=== PATIENT | female | born 1945 | race Caucasian/White ===

== ENCOUNTER 2023-01-16 21:03 | Inpatient (IN) | payer MEDICARE, OTHER, SELFPAY ==
[2023-01-16 21:39] LABS: #Monocytes 0.6 thou/uL (0.11-0.59); #Neutrophils 9.1 thou/uL (1.40-6.50); %Basophils 0.3 % (0.0-1.0); %Lymphocytes 9.6 % (21.0-51.0); %Monocytes 5.1 % (0.0-10.0); %Neutrophils 84.1 % (42.0-75.0); Hematocrit 21.2 % (36.0-47.0); Hemoglobin 6.3 g/dL (12.0-16.0); Mean Corpuscular HGB CONC 29.7 g/dL (32.0-36.0); Mean Corpuscular Hemoglobin 29.2 pg (27.0-31.0); Mean Corpuscular Volume 98.1 fl (78.0-98.0); Mean Platelet Volume 9.3 fL (7.4-10.4); Platelet Count 816 10x3/uL (130-400); RBC Distribution Width 26.3 % (11.5-14.5); Red Blood Cell (RBC) Count 2.16 mill/uL (4.20-5.40); White Blood Cell (WBC) Count 10.9 10x3/uL (4.8-10.8)
[2023-01-16 21:53] LABS: Acetaminophen Less than 10 mcg/mL (10.0-30.0); Alcohol Less than 10.0 mg/dL (Less than 10)
[2023-01-16 21:57] LABS: Troponin I Less than 0.010 ng/mL (< 0.028)
[2023-01-16 22:01] LABS: ALT (SGPT) 12 U/L (8-55); AST (SGOT) 22 U/L (5-34); Albumin 3.8 g/dL (3.4-4.8); Alkaline Phosphatase 74 U/L (40-110); Anion Gap 22 mmol/L (10-20); BUN (Urea Nitrogen) 31 mg/dL (9.8-20.1); Bilirubin, Total Less than 0.2 mg/dL (0.2-1.2); CK (CPK) 187 U/L (29-168); Calc. Creatinine Clearance 0 mL/min (70-130); Calcium 8.3 mg/dL (7.8-10.44); Carbon Dioxide 15 mmol/L (23-31); Chloride 104 mmol/L (98-107); Estimated GFR 51; Globulin 2.9 g/dL (2.4-3.5); Glucose 166 mg/dL (83-110); Potassium 3.4 mmol/L (3.5-5.1); Protein, Total 6.7 g/dL (5.8-8.1); Sodium 138 mmol/L (136-145)
[2023-01-16 22:12] LABS: Anisocytosis MODERATE=16-30 cells HPF (0-5); Burr Cells SLIGHT = 2-5 cells HPF (0-1); CellaVision Operator ID lab.abc; Hypochromia SLIGHT = 6-15 cells HPF (0-5); Large Platelets 7.1 % (0-5); Microcytosis SLIGHT = 6-15 cells HPF (0-5); Platelet Adequacy Comment Platelets Increased; Poikilocytosis SLIGHT = 6-15 cells HPF (0-5); Polychromasia SLIGHT = 2-3 cells HPF (0-2); Smudge Cells 6.1 %; Target Cells SLIGHT = 2-5 cells HPF (0-1)
[2023-01-17 00:28] LABS: Bacteria/HPF 4+ HPF (None Seen); Bilirubin Negative (Negative); Blood, Urine Negative (Negative); CAUTI Indications for Culture Alt mental st,lethar; Clarity Turbid (Clear); Glucose, Urine (Dipstick) Normal (Negative); Ketone, Urine 20 mg/dL (Negative); Leukocyte 500 Leu/uL (Negative); Nitrite 1+ (Negative); Protein, Urine (Dipstick) 20 mg/dL (Neg-Trace); Specific Gravity, Urine 1.021 (1.002-1.036); Squamous Epithelial 0-3 HPF (0-3); Urobilinogen Normal mg/dL (Less than 2); WBC/HPF Greater than 50 HPF (0-3)
[2023-01-17 00:32] LABS: Urine Culture Reflex Yes Yes
[2023-01-17 00:34] LABS: Amphetamine Not Detected (NotDetected); Barbiturates Screen Not Detected (NotDetected); Benzodiazepine Screen Not Detected (NotDetected); Cocaine Metabolite Screen Not Detected (NotDetected); Methadone Not Detected (NotDetected); Methamphetamine Not Detected (NotDetected); Opiate Screen Not Detected (NotDetected); Oxycodone Screen Not Detected (NotDetected); Phencyclidine (PCP) Not Detected (NotDetected); THC/Cannabinoid Screen Not Detected (NotDetected); Tricyclic Screen Not Detected (NotDetected)
[2023-01-17] MEDS ORDERED: Electrolyte Replacement Protocol 1 EACH IVPB PRN (00:51)
[2023-01-17] MEDS ORDERED: Nicotine 14 MG PATCH TD SCH (01:15)
[2023-01-17] MEDS ORDERED: Pantoprazole 40 MG VIAL IVP SCH ×2 (01:15→09:00)
[2023-01-17] MEDS ORDERED: Sodium Bicarbonate 150 MEQ in Dextrose 5% in Water 1,000 ML IV SCH ×2 (01:15→19:30)
[2023-01-17] MEDS ORDERED: Sodium Bicarb 50 MEQ/50 ML VIAL IVP SCH (01:30)
[2023-01-17] MEDS ORDERED: Potassium Chloride 20 MEQ in Lactated Ringer's 1,000 ML IV SCH (01:30)
[2023-01-17] MEDS ORDERED: Potassium Chloride 20 MEQ in Premix Bag 1 BAG IVPB SCH (02:00)
[2023-01-17 02:03] LABS: #Basophils 0.1 thou/uL (0.0-0.2); #Monocytes 0.8 thou/uL (0.11-0.59); #Neutrophils 10.7 thou/uL (1.40-6.50); %Basophils 0.4 % (0.0-1.0); %Eosinophils 0.1 % (0.0-10.0); %Lymphocytes 16.4 % (21.0-51.0); %Monocytes 5.7 % (0.0-10.0); %Neutrophils 76.6 % (42.0-75.0); Actual Bicarbonate (HCO3v) 16.9 mEq/L (22-28); Base Excess -4.7 mEq/L (-2.0 to +3.0); Calcium, Ionized (venous) 0.88 mmol/L (1.16-1.32); Chloride (VBG) 111 mmol/L (98-106); Hematocrit 24.5 % (36.0-47.0); Hematocrit-VBG 25 % (36.0-47.0); Hemoglobin 7.8 g/dL (12.0-16.0); Hemoglobin (Hb) 8.6 g/dL (11.7-16.1); Mean Corpuscular HGB CONC 31.8 g/dL (32.0-36.0); Mean Corpuscular Hemoglobin 29.8 pg (27.0-31.0); Mean Platelet Volume 9.3 fL (7.4-10.4); Platelet Count 703 10x3/uL (130-400); Red Blood Cell (RBC) Count 2.62 mill/uL (4.20-5.40); Sodium 134.7 mmol/L (133-146); pH (venous) 7.526 (7.32-7.43)
[2023-01-17 02:05] LABS: Mean Corpuscular Volume 93.5 fl (78.0-98.0); Potassium (VBG) 2.69 mmol/L (3.70-5.30)
[2023-01-17 02:14] LABS: PTT 40.6 sec (22.9-36.1); Prothrombin Time 23.8 sec (12.0-14.7)
[2023-01-17 02:19] LABS: Lactic Acid 0.8 mmol/L (0.5-2.2)
[2023-01-17] MEDS ORDERED: Pantoprazole 40 MG VIAL ONE (02:56)
[2023-01-17] MEDS ORDERED: Sodium Bicarb 50 MEQ/50 ML VIAL ONE ×2 (02:56→04:02)
[2023-01-17] MEDS ORDERED: Potassium Chloride 20 MEQ/100 ML PREMIX BAG ONE ×3 (02:56→06:08)
[2023-01-17 03:27] LABS: Magnesium 2.1 mg/dL (1.6-2.6)
[2023-01-17 03:34] LABS: Salicylate 66.1 mg/dL (15.0-30.0)
[2023-01-17] MEDS ORDERED: Sodium Bicarbonate 2.5 MEQ/5 ML VIAL ONE (04:02)
[2023-01-17 06:10] LABS: ALT (SGPT) 12 U/L (8-55); AST (SGOT) 22 U/L (5-34); Albumin 3.3 g/dL (3.4-4.8); Alkaline Phosphatase 73 U/L (40-110); Anion Gap 19 mmol/L (10-20); BUN (Urea Nitrogen) 28 mg/dL (9.8-20.1); Bilirubin, Total 0.2 mg/dL (0.2-1.2); Calc. Creatinine Clearance 0 mL/min (70-130); Calcium 7.5 mg/dL (7.8-10.44); Carbon Dioxide 19 mmol/L (23-31); Chloride 105 mmol/L (98-107); Estimated GFR 83; Globulin 2.9 g/dL (2.4-3.5); Glucose 84 mg/dL (83-110); Potassium 2.8 mmol/L (3.5-5.1); Protein, Total 6.2 g/dL (5.8-8.1); Salicylate 54.1 mg/dL (15.0-30.0); Sodium 140 mmol/L (136-145)
[2023-01-17] MEDS: Potassium Chloride 20 MEQ in Premix Bag 1 BAG IVPB SCH ×4 (06:20→18:11)
[2023-01-17 06:41] LABS: Bacteria/HPF 4+ HPF (None Seen); Bilirubin Negative (Negative); Blood, Urine Negative (Negative); CAUTI Indications for Culture Alt mental st,lethar; Glucose, Urine (Dipstick) Normal (Negative); Ketone, Urine 20 mg/dL (Negative); Leukocyte 500 Leu/uL (Negative); Nitrite 1+ (Negative); Protein, Urine (Dipstick) 30 mg/dL (Neg-Trace); Specific Gravity, Urine 1.025 (1.002-1.036); Squamous Epithelial 0-3 HPF (0-3); Urobilinogen Normal mg/dL (Less than 2); WBC/HPF Greater than 50 HPF (0-3)
[2023-01-17 06:55] LABS: Clarity Hazy (Clear)
[2023-01-17 07:09] LABS: Unclassified Crystals None Seen HPF (None Seen)
[2023-01-17 07:34] LABS: Potassium 2.7 mmol/L (3.5-5.1)
[2023-01-17 07:38] LABS: ALT (SGPT) 12 U/L (8-55); AST (SGOT) 25 U/L (5-34); Albumin 3.2 g/dL (3.4-4.8); Alkaline Phosphatase 71 U/L (40-110); Anion Gap 18 mmol/L (10-20); BUN (Urea Nitrogen) 27 mg/dL (9.8-20.1); Bilirubin, Total 0.2 mg/dL (0.2-1.2); Calc. Creatinine Clearance 39 mL/min (70-130); Calcium 7.3 mg/dL (7.8-10.44); Carbon Dioxide 21 mmol/L (23-31); Chloride 105 mmol/L (98-107); Estimated GFR 83; Globulin 2.8 g/dL (2.4-3.5); Glucose 106 mg/dL (83-110); Potassium 2.7 mmol/L (3.5-5.1); Sodium 141 mmol/L (136-145)
[2023-01-17] MEDS ORDERED: Ipratropium/Albuterol 3 ML NEB NEB PRN (11:55)
[2023-01-17 12:10] LABS: Potassium 2.7 mmol/L (3.5-5.1); Salicylate 42.7 mg/dL (15.0-30.0)
[2023-01-17 13:27] LABS: Hematocrit 29.2 % (36.0-47.0); Hemoglobin 9.4 g/dL (12.0-16.0)
[2023-01-17 13:29] LABS: Actual Bicarbonate (HCO3v) 24.7 mEq/L (22-28); Base Excess 2.7 mEq/L (-2.0 to +3.0); Calcium, Ionized (venous) 0.84 mmol/L (1.16-1.32); Chloride (VBG) 104 mmol/L (98-106); Hematocrit-VBG 31 % (36.0-47.0); Hemoglobin (Hb) 10.4 g/dL (11.7-16.1); Sodium 136.8 mmol/L (133-146); pH (venous) 7.545 (7.32-7.43)
[2023-01-17 13:36] LABS: Potassium (VBG) 2.61 mmol/L (3.70-5.30)
[2023-01-17] MEDS ORDERED: Potassium Chloride 20 MEQ TAB PO SCH ×3 (14:30→23:00)
[2023-01-17 14:35] LABS: Anion Gap 16 mmol/L (10-20); BUN (Urea Nitrogen) 24 mg/dL (9.8-20.1); Calc. Creatinine Clearance 44 mL/min (70-130); Calcium 7.3 mg/dL (7.8-10.44); Carbon Dioxide 23 mmol/L (23-31); Chloride 101 mmol/L (98-107); Estimated GFR 91; Glucose 135 mg/dL (83-110); Potassium 2.6 mmol/L (3.5-5.1); Salicylate 37.8 mg/dL (15.0-30.0); Sodium 137 mmol/L (136-145)
[2023-01-17] MEDS: Nicotine 14 MG PATCH TD SCH (20:28)
[2023-01-17] MEDS: Pantoprazole 40 MG VIAL IVP SCH (20:29)
[2023-01-17 21:50] LABS: Potassium 3.6 mmol/L (3.5-5.1)
[2023-01-18 01:50] LABS: Potassium 3.9 mmol/L (3.5-5.1)
[2023-01-18 04:14] LABS: #Basophils 0.1 thou/uL (0.0-0.2); #Eosinphils 0.4 thou/uL (0.0-0.7); #Monocytes 0.9 thou/uL (0.11-0.59); #Neutrophils 7.6 thou/uL (1.40-6.50); %Basophils 0.6 % (0.0-1.0); %Eosinophils 3.2 % (0.0-10.0); %Lymphocytes 24.5 % (21.0-51.0); %Monocytes 7.6 % (0.0-10.0); %Neutrophils 63.4 % (42.0-75.0); Mean Corpuscular Hemoglobin 29.5 pg (27.0-31.0); Mean Corpuscular Volume 95.1 fl (78.0-98.0); Mean Platelet Volume 9.7 fL (7.4-10.4); Platelet Count 530 10x3/uL (130-400); RBC Distribution Width 23.2 % (11.5-14.5); Red Blood Cell (RBC) Count 3.05 mill/uL (4.20-5.40)
[2023-01-18 04:45] LABS: ALT (SGPT) 11 U/L (8-55); AST (SGOT) 22 U/L (5-34); Alkaline Phosphatase 69 U/L (40-110); Anion Gap 11 mmol/L (10-20); BUN (Urea Nitrogen) 17 mg/dL (9.8-20.1); Bilirubin, Total 0.2 mg/dL (0.2-1.2); Calc. Creatinine Clearance 51 mL/min (70-130); Carbon Dioxide 22 mmol/L (23-31); Chloride 106 mmol/L (98-107); Estimated GFR 94; Globulin 2.8 g/dL (2.4-3.5); Glucose 71 mg/dL (83-110); Potassium 4.2 mmol/L (3.5-5.1); Protein, Total 5.8 g/dL (5.8-8.1); Salicylate Less than 8.0 mg/dL (15.0-30.0); Sodium 135 mmol/L (136-145)
[2023-01-18] MEDS: Pantoprazole 40 MG VIAL IVP SCH (09:20)
[2023-01-18] MEDS: Nicotine 14 MG PATCH TD SCH (21:17)
[2023-01-19 06:57] LABS: #Basophils 0.1 thou/uL (0.0-0.2); #Eosinphils 0.2 thou/uL (0.0-0.7); #Monocytes 0.8 thou/uL (0.11-0.59); #Neutrophils 6.6 thou/uL (1.40-6.50); %Basophils 0.5 % (0.0-1.0); %Lymphocytes 26.9 % (21.0-51.0); %Monocytes 7.9 % (0.0-10.0); %Neutrophils 62.1 % (42.0-75.0); Hematocrit 25.3 % (36.0-47.0); Mean Corpuscular HGB CONC 31.6 g/dL (32.0-36.0); Mean Corpuscular Hemoglobin 29.5 pg (27.0-31.0); Mean Corpuscular Volume 93.4 fl (78.0-98.0); Mean Platelet Volume 9.7 fL (7.4-10.4); Platelet Count 435 10x3/uL (130-400); RBC Distribution Width 22.6 % (11.5-14.5); Red Blood Cell (RBC) Count 2.71 mill/uL (4.20-5.40); White Blood Cell (WBC) Count 10.6 10x3/uL (4.8-10.8)
[2023-01-19 07:24] LABS: ALT (SGPT) 11 U/L (8-55); AST (SGOT) 20 U/L (5-34); Albumin 2.9 g/dL (3.4-4.8); Alkaline Phosphatase 70 U/L (40-110); Anion Gap 6 mmol/L (10-20); BUN (Urea Nitrogen) 11 mg/dL (9.8-20.1); Bilirubin, Total 0.3 mg/dL (0.2-1.2); Calc. Creatinine Clearance 63 mL/min (70-130); Calcium 8.7 mg/dL (7.8-10.44); Carbon Dioxide 27 mmol/L (23-31); Chloride 106 mmol/L (98-107); Estimated GFR 97; Glucose 83 mg/dL (83-110); Potassium 4.3 mmol/L (3.5-5.1); Protein, Total 5.9 g/dL (5.8-8.1); Sodium 135 mmol/L (136-145)
[2023-01-19] MEDS: Pantoprazole 40 MG VIAL IVP SCH ×3 (07:48→08:28)
[2023-01-19] MEDS: Nicotine 14 MG PATCH TD SCH (20:16)
[2023-01-20 06:24] LABS: #Basophils 0.1 thou/uL (0.0-0.2); #Eosinphils 0.3 thou/uL (0.0-0.7); #Monocytes 0.8 thou/uL (0.11-0.59); #Neutrophils 4.5 thou/uL (1.40-6.50); %Basophils 0.7 % (0.0-1.0); %Eosinophils 3.6 % (0.0-10.0); %Lymphocytes 33.6 % (21.0-51.0); %Monocytes 8.8 % (0.0-10.0); %Neutrophils 52.8 % (42.0-75.0); Hematocrit 31.1 % (36.0-47.0); Hemoglobin 9.5 g/dL (12.0-16.0); Mean Corpuscular HGB CONC 30.5 g/dL (32.0-36.0); Mean Corpuscular Hemoglobin 29.2 pg (27.0-31.0); Mean Corpuscular Volume 95.7 fl (78.0-98.0); Mean Platelet Volume 9.9 fL (7.4-10.4); Platelet Count 363 10x3/uL (130-400); RBC Distribution Width 23.2 % (11.5-14.5); Red Blood Cell (RBC) Count 3.25 mill/uL (4.20-5.40); White Blood Cell (WBC) Count 8.6 10x3/uL (4.8-10.8)
[2023-01-20 06:50] LABS: ALT (SGPT) 14 U/L (8-55); AST (SGOT) 21 U/L (5-34); Albumin 3.3 g/dL (3.4-4.8); Alkaline Phosphatase 91 U/L (40-110); Anion Gap 13 mmol/L (10-20); BUN (Urea Nitrogen) 12 mg/dL (9.8-20.1); Bilirubin, Total 0.4 mg/dL (0.2-1.2); Calc. Creatinine Clearance 63 mL/min (70-130); Calcium 9.2 mg/dL (7.8-10.44); Carbon Dioxide 21 mmol/L (23-31); Chloride 103 mmol/L (98-107); Estimated GFR 97; Globulin 3.6 g/dL (2.4-3.5); Glucose 88 mg/dL (83-110); Potassium 4.2 mmol/L (3.5-5.1); Protein, Total 6.9 g/dL (5.8-8.1); Sodium 133 mmol/L (136-145)
[2023-01-20] MEDS ORDERED: Fosfomycin 3 GM/Packet PO SCH (10:15)
[2023-01-20 12:00] VITALS: BMI 15.9
[2023-01-20] MEDS: Nicotine 14 MG PATCH TD SCH (21:05)
[2023-01-21 06:43] LABS: #Basophils 0.1 thou/uL (0.0-0.2); #Eosinphils 0.4 thou/uL (0.0-0.7); #Monocytes 0.7 thou/uL (0.11-0.59); #Neutrophils 3.9 thou/uL (1.40-6.50); %Basophils 0.8 % (0.0-1.0); %Eosinophils 4.9 % (0.0-10.0); %Lymphocytes 35.5 % (21.0-51.0); %Monocytes 9.3 % (0.0-10.0); %Neutrophils 48.9 % (42.0-75.0); Hematocrit 29.3 % (36.0-47.0); Hemoglobin 9.2 g/dL (12.0-16.0); Mean Corpuscular HGB CONC 31.4 g/dL (32.0-36.0); Mean Corpuscular Hemoglobin 29.3 pg (27.0-31.0); Mean Corpuscular Volume 93.3 fl (78.0-98.0); Mean Platelet Volume 9.7 fL (7.4-10.4); Platelet Count 349 10x3/uL (130-400); RBC Distribution Width 22.7 % (11.5-14.5); Red Blood Cell (RBC) Count 3.14 mill/uL (4.20-5.40)
[2023-01-21 07:11] LABS: ALT (SGPT) 29 U/L (8-55); AST (SGOT) 30 U/L (5-34); Albumin 3.3 g/dL (3.4-4.8); Alkaline Phosphatase 125 U/L (40-110); Anion Gap 12 mmol/L (10-20); BUN (Urea Nitrogen) 14 mg/dL (9.8-20.1); Bilirubin, Total 0.3 mg/dL (0.2-1.2); Calc. Creatinine Clearance 62 mL/min (70-130); Calcium 9.3 mg/dL (7.8-10.44); Carbon Dioxide 24 mmol/L (23-31); Chloride 103 mmol/L (98-107); Estimated GFR 97; Globulin 3.6 g/dL (2.4-3.5); Glucose 94 mg/dL (83-110); Potassium 4.1 mmol/L (3.5-5.1); Protein, Total 6.9 g/dL (5.8-8.1); Sodium 135 mmol/L (136-145)
[2023-01-21] MEDS: Sertraline 25 MG TAB PO SCH (08:56)
[2023-01-21] MEDS: Nicotine 14 MG PATCH TD SCH (20:21)
[2023-01-21] MEDS ORDERED: Lidocaine 2% Viscous Solution 10 ML, Aluminum & Magnesium Hydroxide 30 ML SSW SCH (23:00)
[2023-01-22 08:15] LABS: #Basophils 0.1 thou/uL (0.0-0.2); #Eosinphils 0.3 thou/uL (0.0-0.7); #Monocytes 0.7 thou/uL (0.11-0.59); #Neutrophils 3.2 thou/uL (1.40-6.50); %Basophils 0.9 % (0.0-1.0); %Eosinophils 4.7 % (0.0-10.0); %Lymphocytes 38.2 % (21.0-51.0); %Monocytes 9.9 % (0.0-10.0); %Neutrophils 45.9 % (42.0-75.0); Hematocrit 29.5 % (36.0-47.0); Hemoglobin 9.3 g/dL (12.0-16.0); Mean Corpuscular HGB CONC 31.5 g/dL (32.0-36.0); Mean Corpuscular Hemoglobin 29.9 pg (27.0-31.0); Mean Corpuscular Volume 94.9 fl (78.0-98.0); Mean Platelet Volume 9.8 fL (7.4-10.4); Platelet Count 290 10x3/uL (130-400); RBC Distribution Width 23.2 % (11.5-14.5); Red Blood Cell (RBC) Count 3.11 mill/uL (4.20-5.40); White Blood Cell (WBC) Count 6.9 10x3/uL (4.8-10.8)
[2023-01-22] MEDS: Sertraline 25 MG TAB PO SCH (08:32)
[2023-01-22 08:33] LABS: ALT (SGPT) 29 U/L (8-55); AST (SGOT) 24 U/L (5-34); Albumin 3.4 g/dL (3.4-4.8); Alkaline Phosphatase 137 U/L (40-110); Anion Gap 11 mmol/L (10-20); BUN (Urea Nitrogen) 14 mg/dL (9.8-20.1); Bilirubin, Total 0.3 mg/dL (0.2-1.2); Calc. Creatinine Clearance 55 mL/min (70-130); Calcium 9.1 mg/dL (7.8-10.44); Carbon Dioxide 22 mmol/L (23-31); Chloride 103 mmol/L (98-107); Estimated GFR 95; Globulin 3.4 g/dL (2.4-3.5); Glucose 83 mg/dL (83-110); Potassium 4.2 mmol/L (3.5-5.1); Protein, Total 6.8 g/dL (5.8-8.1); Sodium 132 mmol/L (136-145)
[2023-01-22] MEDS: Nicotine 14 MG PATCH TD SCH (21:02)
[2023-01-23] MEDS: Sertraline 25 MG TAB PO SCH (09:10)
[2023-01-23 09:31] LABS: #Basophils 0.1 thou/uL (0.0-0.2); #Eosinphils 0.3 thou/uL (0.0-0.7); #Monocytes 0.5 thou/uL (0.11-0.59); #Neutrophils 4.4 thou/uL (1.40-6.50); %Basophils 0.9 % (0.0-1.0); %Eosinophils 3.1 % (0.0-10.0); %Lymphocytes 33.7 % (21.0-51.0); %Monocytes 6.4 % (0.0-10.0); %Neutrophils 55.5 % (42.0-75.0); Hematocrit 34.5 % (36.0-47.0); Hemoglobin 10.4 g/dL (12.0-16.0); Mean Corpuscular HGB CONC 30.1 g/dL (32.0-36.0); Mean Corpuscular Hemoglobin 29.6 pg (27.0-31.0); Mean Corpuscular Volume 98.3 fl (78.0-98.0); Platelet Count 277 10x3/uL (130-400); RBC Distribution Width 23.6 % (11.5-14.5); Red Blood Cell (RBC) Count 3.51 mill/uL (4.20-5.40)
[2023-01-23 09:58] LABS: ALT (SGPT) 25 U/L (8-55); AST (SGOT) 20 U/L (5-34); Albumin 3.5 g/dL (3.4-4.8); Alkaline Phosphatase 141 U/L (40-110); Anion Gap 14 mmol/L (10-20); BUN (Urea Nitrogen) 18 mg/dL (9.8-20.1); Bilirubin, Total 0.4 mg/dL (0.2-1.2); Calc. Creatinine Clearance 57 mL/min (70-130); Calcium 9.7 mg/dL (7.8-10.44); Carbon Dioxide 21 mmol/L (23-31); Chloride 102 mmol/L (98-107); Estimated GFR 95; Globulin 3.9 g/dL (2.4-3.5); Glucose 98 mg/dL (83-110); Potassium 4.1 mmol/L (3.5-5.1); Protein, Total 7.4 g/dL (5.8-8.1); Sodium 133 mmol/L (136-145)
[2023-01-23] MEDS: Nicotine 14 MG PATCH TD SCH (20:02)
[2023-01-24 06:51] LABS: #Basophils 0.1 thou/uL (0.0-0.2); #Eosinphils 0.3 thou/uL (0.0-0.7); #Monocytes 0.5 thou/uL (0.11-0.59); #Neutrophils 5.3 thou/uL (1.40-6.50); %Basophils 0.9 % (0.0-1.0); %Eosinophils 3.4 % (0.0-10.0); %Monocytes 5.6 % (0.0-10.0); %Neutrophils 62.6 % (42.0-75.0); Hematocrit 33.2 % (36.0-47.0); Mean Corpuscular HGB CONC 30.1 g/dL (32.0-36.0); Mean Corpuscular Hemoglobin 29.3 pg (27.0-31.0); Mean Corpuscular Volume 97.4 fl (78.0-98.0); Mean Platelet Volume 9.7 fL (7.4-10.4); Platelet Count 272 10x3/uL (130-400); RBC Distribution Width 23.7 % (11.5-14.5); Red Blood Cell (RBC) Count 3.41 mill/uL (4.20-5.40); White Blood Cell (WBC) Count 8.4 10x3/uL (4.8-10.8)
[2023-01-24 07:19] LABS: ALT (SGPT) 19 U/L (8-55); AST (SGOT) 15 U/L (5-34); Albumin 3.4 g/dL (3.4-4.8); Alkaline Phosphatase 133 U/L (40-110); Anion Gap 14 mmol/L (10-20); BUN (Urea Nitrogen) 16 mg/dL (9.8-20.1); Bilirubin, Total 0.3 mg/dL (0.2-1.2); Calc. Creatinine Clearance 62 mL/min (70-130); Calcium 9.5 mg/dL (7.8-10.44); Carbon Dioxide 22 mmol/L (23-31); Chloride 101 mmol/L (98-107); Estimated GFR 97; Globulin 3.9 g/dL (2.4-3.5); Glucose 95 mg/dL (83-110); Potassium 4.1 mmol/L (3.5-5.1); Protein, Total 7.3 g/dL (5.8-8.1); Sodium 133 mmol/L (136-145)
[2023-01-24 07:31] VITALS: BP 119/59; TEMP 97.9
[2023-01-24] MEDS: Sertraline 25 MG TAB PO SCH (08:33)
== END 2023-01-24 14:45 | disposition home or self-care (01) | DRG 917 ==
LOC: ERS 21:03 → ERHOLD 01-17 00:49 → UNDOADMIN 01-17 01:51 → ERHOLD 01-17 01:51 → IMCU/EMU 01-17 08:14 → T4-B 01-18 15:54
PROVIDERS: ADMIT Family Medicine; ATTEND Family Medicine
PROC: 30233N1 Transfusion of Nonautologous Red Blood Cells into Peripheral Vein, Percutaneous Approach (ICD-10-PCS; principal; 2023-01-16)
DX: T39.091A Poisoning by salicylates, accidental (unintentional), initial encounter (principal); G92.8 Other toxic encephalopathy; K27.4 Chronic or unspecified peptic ulcer, site unspecified, with hemorrhage; E87.20 Acidosis, unspecified; N17.9 Acute kidney failure, unspecified; T39.095A Adverse effect of salicylates, initial encounter; K59.00 Constipation, unspecified; D75.839 Thrombocytosis, unspecified; E88.09 Other disorders of plasma-protein metabolism, not elsewhere classified; Z98.890 Other specified postprocedural states; Z79.82 Long term (current) use of aspirin; Z79.899 Other long term (current) drug therapy; Z90.49 Acquired absence of other specified parts of digestive tract; E87.6 Hypokalemia
CPT/HCPCS: 36415; 36416; 36430; 70450; 71045; 80053; 80179; 80306; 80307; 81001; 82140; 82274; 82550; 82805; 83605; 83690; 83735; 83880; 84100; 84443; 84484; 85025; 85610; 85730; 86850; 86900; 86901; 87077; 87086; 87186; 93005; C9113; J3480; J7070; J7120; P9016